=== PATIENT | male | born 1970 | race Caucasian/White ===

== ENCOUNTER → 2017-06-03 | Outpatient (CLI) | payer OTHER ==
[~2017-06-03] MED LIST: BISM262T88 PO; CETI-176 PO; FLU60SYR30 IM ONLY; FLUT16SP19 NS; LISI-362 PO; LISI20TA29 PO; MELO-207 PO; OMEG-11 PO; PRAV80TA29 PO; ROSU20TA13 PO; TERB12GE TP
[2017-06-03 09:57] LABS: LDL CHOLESTEROL 148 mg/dl
== END ==
LOC: LAB 09:13
PROVIDERS: ATTEND Emergency Medicine
DX: E11.9 Type 2 diabetes mellitus without complications (principal); I10 Essential (primary) hypertension; E78.2 Mixed hyperlipidemia
CPT/HCPCS: 36415; 82310; 82374; 82435; 82465; 82565; 82947; 83036; 83718; 84132; 84295; 84443; 84478; 84520